=== PATIENT | male | born 1990 | race African-American/Black ===

== ENCOUNTER 2017-12-25 12:35 | Emergency (ER) | payer MEDICAID ==
[~2017-12-25] VITALS: Ht 180.3 cm; Wt 118.0 kg
[2017-12-25 12:55] VITALS: BP 139/94
[2017-12-25] MEDS ORDERED: IBUPROFEN 600MG TABLET PO ONE (13:00)
[2017-12-25] MEDS ORDERED: ACETAMINOPHEN 325MG TABLET PO ONE (14:30)
== END 2017-12-25 15:33 | disposition home or self-care (01) ==
LOC: ER 13:13
DX: S80.12XA Contusion of left lower leg, initial encounter (principal); X58.XXXA Exposure to other specified factors, initial encounter; Y93.67 Activity, basketball; Y92.89 Other specified places as the place of occurrence of the external cause; Y99.8 Other external cause status
CPT/HCPCS: 73610; 73630; 99284; Z7610